=== PATIENT | female | born 1960 | race Caucasian/White ===

== ENCOUNTER 2019-07-28 05:45 | Day surgery (SDC) | payer BC ==
--- NOTE | 2019-07-18 19:44 | HP ---
PREOPERATIVE HISTORY AND PHYSICAL: DATE OF ADMISSION/SURGERY: 07/28/19 DATE OF OFFICE VISIT: 07/17/19 ATTENDING SURGEON: Nasim Chavez MD * (DICTATED BY SAMY FULLER) PROCEDURE: Right ankle subtalar and midfoot fusion. CHIEF COMPLAINT: Right ankle pain. HISTORY OF PRESENT ILLNESS: Sade is a 59-year-old female who presents to the clinic for right ankle pain due to osteoarthritis of the right foot planovalgus. She has failed conservative measures to include steroid injections and has agreed to undergo a right ankle subtalar and midfoot fusion on 07/28/[address] Chavez. PAST MEDICAL HISTORY: Hypertension, high cholesterol, basal cell cancer on the right side of her nose, which was resected. She also has a history of PE in her 20s due to control. PAST SURGICAL HISTORY: Ovarian cyst removal, tonsillectomy, basal cell removal with right nose. The patient denies prior complications with anesthesia. MEDICATIONS: 1. Losartan potassium 100 mg one daily. 2. Hydrochlorothiazide 12.5 mg one daily. 3. Tylenol 650 mg one every 6 hours as needed for pain. 4. Meloxicam 15 mg one daily. 5. Vitamin B12 1000 mcg one every day. ALLERGIES: AUGMENTIN. FAMILY HISTORY: Positive for diabetes, cancer, hypertension. Denies family history of DVT or PE. SOCIAL HISTORY: She lives with her spouse. She denies smoking. She reports occasional alcohol consumption. She exercises regularly. REVIEW OF SYSTEMS: A 14-point review of systems was reviewed with the patient. Positive for current complaint, otherwise negative. Denies fevers, chills, chest pain, shortness of breath, or bleeding disorder. She does have a positive history of PE. Denies history of DVT. PHYSICAL EXAMINATION GENERAL: A 59-year-old, well-developed, well-nourished female, in no acute distress. VITAL SIGNS: Height 67, pulse 90, blood pressure 140/70, temperature 96.9. HEENT: Normocephalic, atraumatic. PERRLA. Throat: Clear. NECK: Supple. PULMONARY: Lungs are clear to auscultation bilaterally. No wheezing, rhonchi, or rales. CARDIO: Regular rate and rhythm. S1, S2. No murmurs, rubs, or gallops. No edema. ABDOMEN: Positive bowel sounds, soft, and nontender. NEURO: Alert and oriented x3. Cranial nerves grossly intact. MUSCULOSKELETAL: Right lower extremity, skin is intact. No warmth or erythema or signs of infection. She has pain with ankle inversion and eversion and stiffness. Ankle dorsiflexion and plantarflexion both 5/5 strength. Ankle dorsiflexion and plantarflexion +2 DP pulse. Calf soft and nontender. Sensation intact to light touch distally. DIAGNOSTIC STUDIES: Multi-view x-rays of the ankle revealed lateral impingement and subluxation of the subtalar joint. IMPRESSION: Right ankle osteoarthritis. PLAN: The patient is scheduled to undergo a right ankle subtalar and midfoot fusion with Dr. Chavez on 07/28/19. She will follow up in 10 to 14 days postop for followup and suture removal. Oxycodone will be used for postop pain management and this was sent to her pharmacy today in clinic, and Lovenox will be sent for postoperative DVT prophylaxis due to her history of PE. This was sent to her pharmacy today in clinic. The patient will pick these up prior to surgery but was instructed not to take them before surgery. She understood and had no questions. SAMY FULLER [id number]/[facility] #: [id number] MTDD
[2019-07-28] MEDS ORDERED: ceFAZolin 2 GM in NS PREMIX(*) 2 GM/100 ML BAG IVPB ONE (06:51)
[2019-07-28] MEDS ORDERED: Buffered Lidocaine 1% SYRIN* 1 ML/SYRINGE INTRADERM ONE (06:51)
[2019-07-28] MEDS ORDERED: Midazolam* 1 MG/ML 2 ML VIAL (2 MG) ONE (07:26)
[2019-07-28] MEDS ORDERED: fentaNYL* 50 MCG/ML 2 ML VIAL (100 MCG VIAL) ONE ×2 (07:26→08:56)
[2019-07-28] MEDS ORDERED: Bupivacaine 0.5% SDV PF* 30ML VIAL ONE ×2 (07:27→08:02)
[2019-07-28] MEDS ORDERED: Ondansetron INJ* 2 MG/ML VIAL ONE (08:02)
[2019-07-28] MEDS ORDERED: Lidocaine 2% PF * 5 ML VIAL ONE (08:02)
[2019-07-28] MEDS ORDERED: EPHEDrine (Pressors)* 50 MG/ML VIAL ONE (08:02)
[2019-07-28] MEDS ORDERED: Dexamethasone IV* 4 MG/ML 1 ML (4 MG) ONE (08:02)
[2019-07-28] MEDS ORDERED: Propofol* 10 MG/ML 20 ML BTL ONE (08:02)
[2019-07-28] MEDS ORDERED: Ketorolac INJ* 30 MG/ML 1 ML VIAL ONE (08:02)
[2019-07-28] MEDS ORDERED: fentaNYL* 50 MCG/ML 2 ML VIAL (100 MCG VIAL) IV PRN (08:43)
[2019-07-28] MEDS ORDERED: Naloxone* 0.4 MG/ML 1 ML VIAL IV PRN (08:43)
[2019-07-28] MEDS ORDERED: Metoclopramide IV* 5 MG/ML 2 ML VIAL IV PRN (08:43)
[2019-07-28] MEDS ORDERED: Acetaminophen TAB* 325 MG PO PRN (08:43)
[2019-07-28] MEDS ORDERED: oxyCODONE TAB* 5 MG TAB ONE (10:12)
[2019-07-28 11:14] VITALS: BP 155/96
--- NOTE | 2019-07-28 23:38 | OP ---
DATE OF OPERATION: 07/28/19 - [facility] DATE OF : 58 ATTENDING SURGEON: Dr. Nasim Chavez. HOCKEY SCOUT: Darrell Anderson PA-C. PRE-OP DIAGNOSES: Right hindfoot valgus and osteoarthritis, medial naviculocuneiform joint. POST-OP DIAGNOSIS: Right hindfoot valgus and osteoarthritis, medial naviculocuneiform joint. OPERATIVE PROCEDURE: Right subtalar fusion, tibial bone graft and fusion, right medial naviculocuneiform joint. DESCRIPTION OF PROCEDURE: The patient was taken to the operating room where a lateral incision was made longitudinally along the sinus tarsi. We incised down through the ligaments of the subtalar joint to open the joint with a lamina respiratory clinician. We used a power clay to prepare the joint for arthrodesis. Proximally at Gerdy's tubercle, a 3-cm incision was made and we split the periosteum with electrocautery. A small power clay was used to open Gerdy's tubercle, where we harvested cancellous bone from the proximal tibia. We then packed cancellous chips into the defect closing the fascia with 2-0 Vicryl sutures, 2-0 Monocryl for the subcu and running subcuticular for the skin. Some of the tibial bone graft was placed along the subtalar joint. The joint was then fixed in a more neutral position with a 6.5 mm cannulated screw from the heel up to the body of the talus. We then made a longitudinal incision in the medial midfoot with the anterior tibial tendon isolated and corrected plantar-samayoa. We opened up the capsule of the medial naviculocuneiform joint. A power clay was used to prepare this joint for arthrodesis, some cancellous chips placed along the joint surfaces and then under compression, the T-shaped 2.4 mm Recon plate was placed along the medial aspect with locking and nonlocking screws. X-rays were then performed intraoperatively. Both wounds closed with 2-Monocryl sutures and alejandra for the skin. A compression dressing, plaster splint was applied. [id number]/[facility] #: [id number] [facility]
== END 2019-07-28 11:15 | disposition home or self-care (01) ==
LOC: OR 05:45
PROVIDERS: ATTEND Orthopaedic Surgery
DX: M21.071 Valgus deformity, not elsewhere classified, right ankle (principal); M19.071 Primary osteoarthritis, right ankle and foot; I10 Essential (primary) hypertension; M19.90 Unspecified osteoarthritis, unspecified site; E78.00 Pure hypercholesterolemia, unspecified; Z85.828 Personal history of other malignant neoplasm of skin
CPT/HCPCS: 76000; A9270-GY; C1713; C1776; J0690; J1100; J1885; J2250; J2405; J2704; J3010; J3490

== ENCOUNTER 2021-01-04 05:48 | Observation (INO) ==
[2021-01-04] MEDS ORDERED: Lactated Ringers 1000 ml BAG 1,000 ML IV SCH ×2 (06:00→11:00)
[2021-01-04] MEDS ORDERED: Buffered Lidocaine 1% SYRIN 1 ml INTRADERM ONE (06:00)
[2021-01-04] MEDS ORDERED: ceFAZolin 2 GM in NS PREMIX 2 GM/100 ML BAG IVPB ONE (06:17)
[2021-01-04] MEDS ORDERED: Lidocaine 2% PF 5 ML VIAL ONE (07:08)
[2021-01-04] MEDS ORDERED: Propofol 10 MG/ML 20 ML BTL ONE ×2 (07:08→09:31)
[2021-01-04] MEDS ORDERED: Midazolam 5 mg/5 ml VIAL 1 mg/ml 5 ml VIAL (5 mg) ONE (07:08)
[2021-01-04] MEDS ORDERED: fentaNYL 100 mcg/2 ml 50 MCG/ML VIAL ONE ×2 (07:08→11:03)
[2021-01-04] MEDS ORDERED: ROPIVACAINE 5 MG/ML 30 ML BTL (0.5%) ONE (07:11)
[2021-01-04] MEDS ORDERED: Lidocaine 1% MPF 5 ML VIAL ONE (07:11)
[2021-01-04] MEDS ORDERED: Ketamine HCL 50 mg/ml 10 ml VIAL (500 MG) ONE (08:03)
[2021-01-04] MEDS ORDERED: Dexamethasone IV 4 MG/ML VIAL 1 ml VIAL ONE (08:09)
[2021-01-04] MEDS ORDERED: Ondansetron 4 mg VIAL 2 MG/ML 2 ml VIAL ONE (08:09)
[2021-01-04] MEDS ORDERED: Phenylephrine 40 mcg/mL 10mL (400mcg) SYRINGE ONE (08:15)
[2021-01-04] MEDS ORDERED: Acetaminophen IV 1 GM/100ML 100 ML IV ONE (08:32)
[2021-01-04] MEDS ORDERED: DiMENhydriNATE IV 50 mg/ml 1 ml VIAL IV PUSH PRN (09:32)
[2021-01-04] MEDS ORDERED: Acetaminophen IV 1 GM/100ML 100 ML IV PRN (09:32)
[2021-01-04] MEDS ORDERED: fentaNYL 100 mcg/2 ml 50 MCG/ML VIAL IV PRN (09:32)
[2021-01-04] MEDS ORDERED: Ondansetron 4 mg VIAL 2 MG/ML 2 ml VIAL IV PRN ×2 (09:32→10:27)
[2021-01-04] MEDS ORDERED: Naloxone 0.4 mg VIAL 0.4 mg/ml 1 ml VIAL IV PRN (09:32)
[2021-01-04] MEDS ORDERED: Ondansetron ODT 4 mg TAB 4 MG TAB PO PRN (10:27)
[2021-01-04] MEDS ORDERED: diPHENhydraMINE IV 50 MG/ML 1 ml VIAL (BENADRYL) IV PRN (10:27)
[2021-01-04] MEDS ORDERED: diPHENhydraMINE 25 mg TAB PO PRN (10:27)
[2021-01-04] MEDS ORDERED: Lactulose 30 ml UDC PO PRN (10:27)
[2021-01-04] MEDS ORDERED: Magnesium Hydroxide LIQ 30 ML UDC PO PRN (10:27)
[2021-01-04] MEDS ORDERED: HYDROmorphone 0.5 MG/0.5 ML SYRINGE ONE (10:31)
[2021-01-04] MEDS ORDERED: HYDROmorphone 1 MG/1 ML SYRINGE ONE (10:34)
[2021-01-04] MEDS: HYDROmorphone 1 MG/1 ML SYRINGE IV PRN ×5 (10:35→10:55)
[2021-01-04 13:26] LABS: Hepatitis B Surface Antigen Nonreactive (Nonreactive)
[2021-01-04 13:35] LABS: HIV 4th Generation Nonreactive (Nonreactive)
[2021-01-04 13:44] LABS: Hepatitis C Antibody Negative (Negative)
[2021-01-04] MEDS: Dextran 70/Hypromellose Tears Eye Drops 15 ml BTL (for Artificials Tears) RIGHT EYE PRN ×2 (14:31→16:29)
[2021-01-04] MEDS: ceFAZolin 1 GM ADVAN 1 GM in NS 0.9% 50 ML 50 ML IVPB SCH (16:30)
[2021-01-04] MEDS: Magnesium Hydroxide LIQ 30 ML UDC PO SCH (20:12)
[2021-01-05] MEDS: ceFAZolin 1 GM ADVAN 1 GM in NS 0.9% 50 ML 50 ML IVPB SCH ×2 (00:01→07:32)
[2021-01-05 07:34] LABS: Hematocrit 33 % (35-47); Hemoglobin 11.6 g/dL (12.0-16.0); Mean Platelet Volume 7.9 fL (7.4-10.4); Platelet Count 214 10^3/uL (150-450)
[2021-01-05 07:51] LABS: Calcium 8.4 mg/dL (8.6-10.3); EGFR African American 85.8 (>60); EGFR Non-African American 70.9 (>60); Potassium 3.6 mmol/L (3.5-5.0)
[2021-01-05] MEDS: Magnesium Hydroxide LIQ 30 ML UDC PO SCH ×2 (10:10→22:55)
[2021-01-05] MEDS: Vitamin THERAPEUTIC TAB PO SCH (12:50)
[2021-01-06 07:10] LABS: Hematocrit 31 % (35-47); Hemoglobin 10.9 g/dL (12.0-16.0); Mean Platelet Volume 7.8 fL (7.4-10.4); Platelet Count 205 10^3/uL (150-450)
[2021-01-06] MEDS: Magnesium Hydroxide LIQ 30 ML UDC PO SCH (08:03)
[2021-01-06] MEDS: Vitamin THERAPEUTIC TAB PO SCH (08:04)
[2021-01-06 11:22] VITALS: BP 92/57
== END 2021-01-06 14:30 | disposition home or self-care (01) ==
LOC: SSU 05:48 → OR 05:48 → SSU 01-06 14:49
PROVIDERS: ADMIT Orthopaedic Surgery; ATTEND Orthopaedic Surgery

== ENCOUNTER 2021-07-01 12:57 | Inpatient (IN) ==
[~2021-07-01 12:57] MED LIST: Buffered Lidocaine 1% SYRIN 1 ml INTRADERM ONE; Dexamethasone IV 4 MG/ML VIAL 1 ml VIAL IV SLOW PU ONE; Famotidine IV 10 MG/ML 2 ml VIAL (20 mg) IV ONE; Lactated Ringers 1000 ml BAG 1,000 ML IV SCH
[2021-07-01] MEDS ORDERED: Dexamethasone IV 4 MG/ML VIAL 1 ml VIAL ONE ×2 (13:19→16:04)
[2021-07-01] MEDS ORDERED: Famotidine IV 10 MG/ML 2 ml VIAL (20 mg) ONE (13:19)
[2021-07-01] MEDS ORDERED: ceFAZolin 2 GM PREMIX 2 GM/50 ML BAG ONE (13:21)
[2021-07-01] MEDS ORDERED: Midazolam 2 mg/2 ml VIAL 1 mg/ml 2 ml VIAL (2 mg) ONE ×2 (14:22→15:47)
[2021-07-01] MEDS ORDERED: fentaNYL 100 mcg/2 ml 50 MCG/ML VIAL ONE (14:23)
[2021-07-01] MEDS ORDERED: ROPIVACAINE 5 MG/ML 30 ML BTL (0.5%) ONE (14:24)
[2021-07-01] MEDS ORDERED: Acetaminophen IV 1 GM/100ML VI 100 ML ONE (14:47)
[2021-07-01] MEDS ORDERED: Ropivacaine 5 MG/ML 20 ML VIAL 0.5% (100 MG) ONE (15:08)
[2021-07-01] MEDS ORDERED: Ondansetron 4 mg VIAL 2 MG/ML 2 ml VIAL IV PRN (15:36)
[2021-07-01] MEDS ORDERED: diPHENhydraMINE 25 mg TAB PO PRN (15:36)
[2021-07-01] MEDS ORDERED: Magnesium Hydroxide LIQ 30 ML UDC PO PRN (15:36)
[2021-07-01] MEDS ORDERED: Morphine 2 MG/ML SYRINGE IV PRN (15:36)
[2021-07-01] MEDS ORDERED: Lactulose 30 ml UDC PO PRN (15:36)
[2021-07-01] MEDS ORDERED: Ondansetron ODT 4 mg TAB 4 MG TAB PO PRN (15:36)
[2021-07-01] MEDS ORDERED: diPHENhydraMINE IV 50 MG/ML 1 ml VIAL (BENADRYL) IV PRN (15:36)
[2021-07-01] MEDS ORDERED: fentaNYL 100 mcg/2 ml 50 MCG/ML VIAL IV PRN (15:52)
[2021-07-01] MEDS ORDERED: Morphine 4 MG/ML VIAL (1 ml) IV PRN (15:52)
[2021-07-01] MEDS ORDERED: Prochlorperazine 5 mg/ml 2 ml VIAL (10 mg) IV PRN (15:52)
[2021-07-01] MEDS ORDERED: Naloxone 0.4 mg VIAL 0.4 mg/ml 1 ml VIAL IV PRN (15:52)
[2021-07-01] MEDS ORDERED: Glycopyrrolate IV 0.2 MG/ML 1 ML VIAL ONE (15:53)
[2021-07-01] MEDS ORDERED: Propofol 10 MG/ML 20 ML BTL ONE ×3 (16:04)
[2021-07-01] MEDS ORDERED: Ondansetron 4 mg VIAL 2 MG/ML 2 ml VIAL ONE (16:04)
[2021-07-01] MEDS ORDERED: Phenylephrine IV 10 MG/ML 1 ml VIAL ONE (16:04)
[2021-07-01] MEDS ORDERED: Lidocaine 2% PF 5 ML VIAL ONE (16:04)
[2021-07-01] MEDS ORDERED: HYDROmorphone 0.5 MG/0.5 ML SYRINGE ONE (16:29)
[2021-07-01] MEDS ORDERED: Labetalol IV 5 MG/ML 20 ml VIAL IV PUSH ONE (18:49)
[2021-07-01] MEDS: Magnesium Hydroxide LIQ 30 ML UDC PO SCH (21:29)
[2021-07-01] MEDS: Lactated Ringers 1000 ml BAG 1,000 ML IV SCH (21:32)
[2021-07-02] MEDS: ceFAZolin 1 GM ADVAN 1 GM in NS 0.9% 50 ML 50 ML IVPB SCH ×3 (00:02→15:08)
[2021-07-02 05:15] LABS: Hematocrit 33 % (35-47); Hemoglobin 11.5 g/dL (12.0-16.0); Mean Platelet Volume 7.8 fL (7.4-10.4); Platelet Count 238 10^3/uL (150-450)
[2021-07-02 05:37] LABS: Calcium 9.1 mg/dL (8.6-10.3); eGFR CKD-EPI 78.5 (>60)
[2021-07-02] MEDS: Lactated Ringers 1000 ml BAG 1,000 ML IV SCH (06:24)
[2021-07-02] MEDS ORDERED: Flu vaccine *QUAD* 2021-22* 0.5 ML SYRINGE IM ONE (09:00)
[2021-07-02] MEDS ORDERED: Vitamin THERAPEUTIC TAB PO SCH (09:00)
[2021-07-02] MEDS: Magnesium Hydroxide LIQ 30 ML UDC PO SCH (09:06)
[2021-07-02 11:45] VITALS: BP 110/68
== END 2021-07-02 16:00 | disposition home or self-care (01) | DRG 302 ==
LOC: AA 12:57 → SSU 19:30
PROVIDERS: ADMIT Orthopaedic Surgery Adult Reconstructive Orthopaedic Surgery; ATTEND Orthopaedic Surgery Adult Reconstructive Orthopaedic Surgery

== ENCOUNTER 2023-02-09 08:18 | Observation (INO) ==
[~2023-02-09 08:18] MED LIST changes: -Dexamethasone IV 4 MG/ML VIAL 1 ml VIAL IV SLOW PU ONE; -Famotidine IV 10 MG/ML 2 ml VIAL (20 mg) IV ONE
[2023-02-09] MEDS ORDERED: ceFAZolin 2 GM in NS PREMIX 2 GM/100 ML BAG IVPB ONE (08:27)
[2023-02-09] MEDS ORDERED: Glycopyrrolate IV 0.2 MG/ML 1 ML VIAL ONE (08:27)
[2023-02-09] MEDS ORDERED: Lidocaine 2% PF 5 ML VIAL ONE (08:34)
[2023-02-09] MEDS ORDERED: Dexamethasone IV 4 MG/ML VIAL 1 ml VIAL ONE (08:34)
[2023-02-09] MEDS ORDERED: Ondansetron 4 mg VIAL 2 MG/ML 2 ml VIAL ONE (08:34)
[2023-02-09] MEDS ORDERED: Propofol 10 MG/ML 20 ML BTL ONE ×2 (08:34→11:57)
[2023-02-09] MEDS ORDERED: Midazolam 2 mg/2 ml VIAL 1 mg/ml 2 ml VIAL (2 mg) ONE ×2 (08:34→12:05)
[2023-02-09] MEDS ORDERED: fentaNYL 100 mcg/2 ml 50 MCG/ML VIAL ONE (08:35)
[2023-02-09 08:53] LABS: Rapid COVID-19 Molecular Undetected (Undetected)
[2023-02-09] MEDS ORDERED: Naloxone 0.4 mg VIAL 0.4 mg/ml 1 ml VIAL IV PRN (09:50)
[2023-02-09] MEDS ORDERED: HYDROmorphone 1 MG/1 ML SYRINGE IV PRN (09:50)
[2023-02-09] MEDS ORDERED: ROPIVACAINE 5 MG/ML 30 ML BTL (0.5%) ONE (10:08)
[2023-02-09] MEDS ORDERED: Morphine 2 MG/ML SYRINGE IV PRN (11:35)
[2023-02-09] MEDS ORDERED: Ondansetron ODT 4 mg TAB 4 MG TAB PO PRN (11:35)
[2023-02-09] MEDS ORDERED: Magnesium Hydroxide LIQ 30 ML UDC PO PRN (11:35)
[2023-02-09] MEDS ORDERED: Lactulose 30 ml UDC PO PRN (11:35)
[2023-02-09] MEDS ORDERED: Ondansetron 4 mg VIAL 2 MG/ML 2 ml VIAL IV PRN (11:35)
[2023-02-09] MEDS ORDERED: Acetaminophen IV 1 GM/100ML 1,000 MG/100 ML BAG IV ONE (11:40)
[2023-02-09] MEDS ORDERED: HYDROmorphone 1 MG/1 ML SYRINGE ONE (14:18)
[2023-02-09] MEDS: Lactated Ringers 1000 ml BAG 1,000 ML IV SCH (15:41)
[2023-02-09] MEDS: ceFAZolin 1 GM ADVAN 1 GM in NS 0.9% 50 ML 50 ML IVPB SCH (18:09)
[2023-02-09] MEDS: Magnesium Hydroxide LIQ 30 ML UDC PO SCH (21:29)
[2023-02-10] MEDS: ceFAZolin 1 GM ADVAN 1 GM in NS 0.9% 50 ML 50 ML IVPB SCH ×2 (01:55→10:42)
[2023-02-10] MEDS: Lactated Ringers 1000 ml BAG 1,000 ML IV SCH (01:56)
[2023-02-10 05:54] LABS: Hematocrit 30.9 % (35-45); Hemoglobin 10.8 g/dL (11.5-14.3); Mean Platelet Volume 7.9 fL (7.5-11.2); Platelet Count 214 10^3/uL (150-450)
[2023-02-10 06:10] LABS: Calcium 8.9 mg/dL (8.6-10.3); Creatinine, Serum 0.72 mg/dL (0.51-0.95); Potassium 4.4 mmol/L (3.5-5.0); eGFR CKD-EPI 93.9 (>60)
[2023-02-10] MEDS ORDERED: Vitamin THERAPEUTIC TAB PO SCH (09:00)
[2023-02-10] MEDS: Magnesium Hydroxide LIQ 30 ML UDC PO SCH (09:08)
[2023-02-10 10:34] VITALS: BP 130/74
== END 2023-02-10 14:40 | disposition home or self-care (01) ==
LOC: AA 08:18 → INTOOBSV 08:18 → SSU 11:35
PROVIDERS: ADMIT Orthopaedic Surgery Adult Reconstructive Orthopaedic Surgery; ATTEND Orthopaedic Surgery Adult Reconstructive Orthopaedic Surgery

== ENCOUNTER 2023-05-25 06:42 | Inpatient (IN) ==
[~2023-05-25 06:42] MED LIST changes: +Scopolamine 1 mg/72hr PATCH TRANSDERM ONE
[2023-05-25] MEDS ORDERED: ROPIVACAINE 5 MG/ML 30 ML BTL (0.5%) ONE (07:05)
[2023-05-25] MEDS ORDERED: Propofol 10 MG/ML 20 ML BTL ONE ×2 (07:10→07:18)
[2023-05-25] MEDS ORDERED: Lidocaine 2% PF 5 ML VIAL ONE (07:13)
[2023-05-25] MEDS ORDERED: Midazolam 2 mg/2 ml VIAL 1 mg/ml 2 ml VIAL (2 mg) ONE (07:14)
[2023-05-25] MEDS ORDERED: fentaNYL 250 mcg/5 ml 50 MCG/ML 5 ml VIAL (250 MCG) ONE (07:14)
[2023-05-25] MEDS ORDERED: Phenylephrine IV 10 MG/ML 1 ml VIAL ONE (07:15)
[2023-05-25] MEDS ORDERED: Scopolamine 1 mg/72hr PATCH ONE (07:22)
[2023-05-25] MEDS ORDERED: Tranexamic Acid 1 GM/100ML BAG 2,000 MG/200 ML BAG IV ONE (07:23)
[2023-05-25] MEDS ORDERED: ceFAZolin 2 GM in NS PREMIX 2 GM/100 ML BAG IVPB ONE (07:23)
[2023-05-25] MEDS ORDERED: Buffered Lidocaine 1% SYRIN 1 ml ONE (07:24)
[2023-05-25 08:00] LABS: Rapid COVID-19 Molecular Undetected (Undetected)
[2023-05-25] MEDS ORDERED: Rocuronium 50 mg VIAL 10 mg/ml 5 ml VIAL (50 mg) ONE (08:08)
[2023-05-25] MEDS ORDERED: Phenylephrine 40 mcg/mL 10mL (400mcg) SYRINGE ONE (08:36)
[2023-05-25] MEDS ORDERED: Ondansetron 4 mg VIAL 2 MG/ML 2 ml VIAL ONE (08:55)
[2023-05-25] MEDS ORDERED: Dexamethasone IV 4 MG/ML VIAL 1 ml VIAL ONE (08:55)
[2023-05-25] MEDS ORDERED: Morphine 2 MG/ML SYRINGE IV PRN (09:06)
[2023-05-25] MEDS ORDERED: Magnesium Hydroxide LIQ 30 ML UDC PO PRN (09:06)
[2023-05-25] MEDS ORDERED: Ondansetron ODT 4 mg TAB 4 MG TAB PO PRN (09:06)
[2023-05-25] MEDS ORDERED: Ondansetron 4 mg VIAL 2 MG/ML 2 ml VIAL IV PRN ×2 (09:06→10:54)
[2023-05-25] MEDS ORDERED: Lactulose 30 ml UDC PO PRN (09:06)
[2023-05-25] MEDS ORDERED: HYDROmorphone 0.5 MG/0.5 ML SYRINGE ONE (09:46)
[2023-05-25] MEDS ORDERED: fentaNYL 100 mcg/2 ml 50 MCG/ML VIAL ONE ×2 (10:48→11:13)
[2023-05-25] MEDS ORDERED: Naloxone 0.4 mg VIAL 0.4 mg/ml 1 ml VIAL IV PRN (10:54)
[2023-05-25] MEDS ORDERED: HYDROcodone/ACETAMIN 5/325 mg TAB PO PRN (10:54)
[2023-05-25] MEDS ORDERED: Metoclopramide 5 MG/ML VIAL (10 mg) IV PRN (10:54)
[2023-05-25] MEDS: fentaNYL 100 mcg/2 ml 50 MCG/ML VIAL IV PRN ×7 (10:56→11:40)
[2023-05-25] MEDS ORDERED: HYDROcodone/ACETAMIN 5/325 mg TAB ONE (11:25)
[2023-05-25] MEDS: Lactated Ringers 1000 ml BAG 1,000 ML IV SCH ×2 (12:30→23:49)
[2023-05-25] MEDS: Clindamycin 600 MG/D5W BAG 600 MG/50 ML BAG IV SCH ×2 (16:12→23:55)
[2023-05-25] MEDS: Magnesium Hydroxide LIQ 30 ML UDC PO SCH (21:16)
[2023-05-26 05:01] LABS: Platelet Count 205 10^3/uL (150-450)
[2023-05-26 05:18] LABS: Calcium 8.5 mg/dL (8.6-10.3); Creatinine, Serum 0.96 mg/dL (0.51-0.95); Potassium 4.1 mmol/L (3.5-5.0); eGFR CKD-EPI 66.1 (>60)
[2023-05-26 06:26] LABS: Hematocrit 30.6 % (35-45); Hemoglobin 10.4 g/dL (11.5-14.3); Mean Platelet Volume 7.9 fL (7.5-11.2)
[2023-05-26] MEDS: Magnesium Hydroxide LIQ 30 ML UDC PO SCH (07:36)
[2023-05-26] MEDS: Clindamycin 600 MG/D5W BAG 600 MG/50 ML BAG IV SCH (07:41)
[2023-05-26] MEDS ORDERED: Vitamin THERAPEUTIC TAB PO SCH (09:00)
[2023-05-26 10:33] VITALS: BP 94/60
== END 2023-05-26 13:25 | disposition home or self-care (01) | DRG 309 ==
LOC: AA 06:42 → SSU 09:07
PROVIDERS: ADMIT Orthopaedic Surgery Adult Reconstructive Orthopaedic Surgery; ATTEND Orthopaedic Surgery Adult Reconstructive Orthopaedic Surgery